=== PATIENT | male | born 1985 | race Two or more races ===

== ENCOUNTER 2016-06-20 13:26 | Emergency (ER) | payer SELFPAY ==
[~2016-06-20] VITALS: Ht 177.8 cm; Wt 81.6 kg
--- NOTE | 2016-06-20 13:32 | NUR ---
PT THREATENING STAFF, STATING "I HOPE YOU HIT HARDER THAN ME". PLACED ON 2 POINT RESTRAINTS FOR SAFETY.
--- NOTE | 2016-06-20 13:35 | NUR ---
PT BIB RA FOR ALTERED MENTAL STATUS S/P SUSPECTED DRUG AND ETOH USE. PT UNABLE TO MAKE NEEDS KNOWN. ALERT BUT DISORIENTED. REFUSING TO TELL US HIS NAME OR ANSWER QUESTIONS. THREATENING STAFF VERBALLY. ON 2 POINT RESTRAINTS FOR SAFETY. IN ER BED 15 ON MONITOR.
[2016-06-20] MEDS ORDERED: LORAZEPAM INJ 2 MG/ML VIAL ONE ×3 (13:40→18:50)
[2016-06-20] MEDS ORDERED: diphenhydrAMINE HCL 50 MG/ML VIAL ONE (13:40)
[2016-06-20] MEDS ORDERED: HALOPERIDOL LACTATE INJ 5 MG/ML VIAL ONE (13:40)
[2016-06-20 13:57] LABS: MEAN CORPUSCULAR VOLUME 90 fL (80-96); RDW COEFFICIENT OF VARIATION 12.1 (11.5-15.0)
[2016-06-20 13:59] LABS: BASOPHILS # (AUTO) 0.1 /CMM (0.0-0.2); BASOPHILS % (AUTO) 0.7 % (0.0-2.0); EOSINOPHILS # (AUTO) 0.2 /CMM (0.0-0.7); EOSINOPHILS % (AUTO) 1.2 % (0.0-6.0); HEMATOCRIT 42 % (39-51); HEMOGLOBIN 14.3 g/dL (13.5-17.5); LYMPHOCYTES # (AUTO) 4.9 /CMM (0.8-4.8); LYMPHOCYTES % (AUTO) 26.4 % (20.0-44.0); MEAN CORPUSCULAR HEMOGLOBIN 31 PG (26.0-33.0); MEAN CORPUSCULAR HGB CONC 34 g/dl (31.0-36.0); MONOCYTES # (AUTO) 0.5 /CMM (0.1-1.30); MONOCYTES % (AUTO) 2.8 % (2.0-12.0); NEUTROPHILS # (AUTO) 12.8 /CMM (1.8-8.9); NEUTROPHILS % (AUTO) 68.9 % (43.0-81.0); PLATELET COUNT (AUTO) 160 /CMM (150-450); RED BLOOD CELL COUNT(AUTO) 4.65 MIL/uL (4.5-6.0); WHITE BLOOD COUNT (AUTO) 18.5 K/uL (4.3-11.0)
[2016-06-20] MEDS ORDERED: HALOPERIDOL LACTATE INJ 5 MG/ML VIAL IM ONE (14:00)
[2016-06-20] MEDS ORDERED: LORAZEPAM INJ 2 MG/ML VIAL IV ONE ×3 (14:00→19:30)
[2016-06-20] MEDS ORDERED: diphenhydrAMINE HCL 50 MG/ML VIAL IM ONE (14:00)
[2016-06-20 14:03] LABS: CALCIUM, SERUM 8.9 mg/dL (8.5-10.1); CREATININE 0.9 mg/dL (0.6-1.3); POTASSIUM 4.3 mmol/L (3.5-5.1)
--- NOTE | 2016-06-20 14:15 | NUR ---
PT STILL VERY AGITATED, YELLING, MAKING NO SENSE. ON 4 POINT RESTRAINTS FOR SAFETY. MD NOTIFIED. ATIVAN ORDER RECEIVED AND ADMINISTERED.
[2016-06-20 14:16] LABS: ALBUMIN 4.6 g/dL (3.4-5.0); BILIRUBIN,TOTAL 0.3 mg/dL (0.2-1.0); SALICYLATE 3.1 mg/dL (2.8-20.0); TOTAL PROTEIN, SERUM 7.9 g/dL (6.4-8.2)
[2016-06-20] MEDS ORDERED: IV NS 0.9% 1,000 ML ONE ×2 (14:19→18:49)
[2016-06-20] MEDS ORDERED: IV SET PRIMARY 1 EA INFUS.SET MC ONE ×2 (14:19→18:49)
[2016-06-20] MEDS ORDERED: IV NS 0.9% 1,000 ML BAG IV ONE (14:30)
--- NOTE | 2016-06-20 14:31 | NUR ---
URINE SAMPLE OBTAINED BY MARTINEZ CATH
[2016-06-20 15:18] LABS: APPEARANCE,URINE Clear (CLEAR); BILIRUBIN,URINE Negative (NEGATIVE); BLOOD, URINE Negative Ery/uL (NEGATIVE); COLOR,URINE Yellow (YELLOW); KETONES,URINE Negative (NEGATIVE); LEUKOCYTE ESTERASE ,URINE Negative (NEGATIVE); NITRITE, URINE Negative (NEGATIVE); PROTEIN,URINE Negative (NEGATIVE); UGLUCOSE Negative (NEGATIVE); UROBILINOGEN,URINE 0.2 EU/dL (0.2)
[2016-06-20 15:29] LABS: PHENCYCLIDINE SCREEN,URINE NEGATIVE (NEGATIVE)
[2016-06-20 15:30] LABS: CANNABINOID, URINE POSITIVE (NEGATIVE)
--- NOTE | 2016-06-20 16:39 | NUR ---
RESTING QUIETLY, NAD NOTED. PLACED ON 2LPM VIA NC FOR O2 SUPPORT. PT SNORING.
--- NOTE | 2016-06-20 17:31 | NUR ---
PT WOKE UP, SCREAMING. UNABLE TO TELL HIS NAME OR RESPOND APPROPRIATELY. VSS. NOTIFIED.
[2016-06-20] MEDS ORDERED: WATER FOR INJECTION,STERILE 10 ML ONE (17:33)
[2016-06-20] MEDS ORDERED: OLANZAPINE 10 MG VIAL IM ONE ×2 (17:33→18:00)
--- NOTE | 2016-06-20 18:57 | NUR ---
PT WOKE UP AGAIN, SCREAMING. MD NOTIFIED. MEDICATION ADMINISTERED ORDERED.
[2016-06-20] MEDS ORDERED: IV NS 0.9% 1,000 ML IV ONE (19:00)
--- NOTE | 2016-06-20 20:55 | NUR ---
PT REMAINS SEDATED AT THIS TIME BUT AROUSABLE TO PAINFUL STIMULUS, NAD NOTED. VSS.
--- NOTE | 2016-06-20 21:17 | NUR ---
PT WOKE UP, AND THIS TIME IS ABLE TO TELL ME HIS NAME IS "YEISON". UNABLE TO PROVIDE MORE INFORMATION. WILL CONTINUE TO MONITOR.
--- NOTE | 2016-06-20 23:32 | NUR ---
PT ASLEEP BUT AROUSABLE AT THIS TIME. STILL UNABLE TO PROVIDE MORE INFORMATION THAN HIS NAME. REPORT GIVEN TO TANA BRAVO RN FOR [facility].
--- NOTE | 2016-06-21 04:35 | NUR ---
PT OK TO DISCHARGE PER DR GASTON. IV removed. Catheter intact and site benign. Pressure and 4x4 applied to site. No bleeding noted.Patient discharged to home in stable condition. Written and verbal after care instructions given. Patient verbalizes understanding of instruction.Patient is awake and alert to self, day, and place. PT denies SI/HI PT ambulatory with a steady gait.
[2016-06-21 05:06] VITALS: BP 115/85
== END 2016-06-21 05:07 | disposition home or self-care (01) ==
LOC: EDBD 13:29 → ER 13:29
DX: F15.10 Other stimulant abuse, uncomplicated (principal); Z59.0 Homelessness
CPT/HCPCS: 36415; 80048; 80076; 80305; 80329; 81001; 85025; 96361; 96372 ×3; 96374; 96376; 99284; A4606 ×2; G0480 ×2; J1200; J1630; J2060 ×3; J3490; J7030 ×2; Z7610 ×2; 81000-TC; G6039-TC

== ENCOUNTER 2021-06-22 15:50 | Emergency (ER) | payer SELFPAY ==
[~2021-06-22] VITALS: Ht 172.7 cm; Wt 86.2 kg
[2021-06-22 15:54] VITALS: BP 112/64
--- NOTE | 2021-06-22 15:56 | NUR ---
SEEN AND EXAMINED BY .
[2021-06-22] MEDS ORDERED: ACETAMINOPHEN ES 500 MG TABLET PO ONE (16:00)
[2021-06-22] MEDS ORDERED: TDAP [DIPH/PERTUSSIS/TET] 0.5 ML VIAL IM ONE ×2 (16:00→16:21)
[2021-06-22] MEDS ORDERED: LIDOCAINE HCL/PF 1% 30 ML VIAL TP ONE (16:00)
[2021-06-22] MEDS ORDERED: BACI/NEOM/POLY B OINT PKT 1 UDPKT PACKET TP ONE (16:00)
[2021-06-22] MEDS ORDERED: ACETAMINOPHEN ES 500 MG TABLET ONE (16:20)
--- NOTE | 2021-06-22 16:23 | NUR ---
PA AT BEDSIDE FOR SUTURING.
--- NOTE | 2021-06-22 17:34 | NUR ---
Patient discharged to home in stable condition. Written and verbal after care instructions given. Patient verbalizes understanding of instruction.
== END 2021-06-22 17:35 | disposition home or self-care (01) ==
LOC: ER 15:53
DX: S51.812A Laceration without foreign body of left forearm, initial encounter (principal); S51.811A Laceration without foreign body of right forearm, initial encounter; Z60.2 Problems related to living alone; X99.2XXA Assault by sword or dagger, initial encounter; Y93.89 Activity, other specified; Y92.89 Other specified places as the place of occurrence of the external cause; Y99.8 Other external cause status
CPT/HCPCS: 12002; 90471; 90715; 99283; A6403; J3490

== ENCOUNTER 2021-07-22 19:37 | Emergency (ER) | payer OTHER ==
[~2021-07-22] VITALS: Ht 175.3 cm; Wt 68.0 kg
--- NOTE | 2021-07-22 20:45 | NUR ---
BIBSELF C/O SUTUTE REMOVAL UPPER LEFT ARM AND POSS BUG BITE UPPER LEFT ARM. AMBULAORY, PLACED ON A CHAIR, [id number]
[2021-07-22] MEDS ORDERED: LIDOCAINE /MPF 1% VIAL 5 ML VIAL ONE (21:16)
[2021-07-22] MEDS ORDERED: CEFTRIAXONE 1 G VIAL ONE (21:16)
[2021-07-22] MEDS ORDERED: SULFAMETH/TRIMETH 800/160 MG 1 UDTAB TABLET ONE (21:17)
[2021-07-22] MEDS ORDERED: KETOROLAC TROMETHAMINE INJ 30 MG/ML VIAL ONE (21:18)
[2021-07-22] MEDS ORDERED: SULFAMETH/TRIMETH 800/160 MG 1 UDTAB TABLET PO ONE (21:30)
[2021-07-22] MEDS ORDERED: CEFTRIAXONE 1 G VIAL IM ONE (21:30)
[2021-07-22] MEDS ORDERED: KETOROLAC TROMETHAMINE INJ 60 MG/2 ML VIAL IM ONE (21:30)
[2021-07-22] MEDS ORDERED: CEPH500C2 PO (21:51)
[2021-07-22] MEDS ORDERED: SULF1TAB48 PO (21:51)
[2021-07-22] MEDS ORDERED: IBUP-1955 PO (21:52)
--- NOTE | 2021-07-22 22:11 | NUR ---
Patient discharged to home in stable condition. Written and verbal after care instructions given. Patient verbalizes understanding of instruction.
[2021-07-22 22:26] VITALS: BP 135/75
== END 2021-07-22 22:25 | disposition home or self-care (01) ==
LOC: ER 19:39
DX: L03.114 Cellulitis of left upper limb (principal); Z48.02 Encounter for removal of sutures; F15.10 Other stimulant abuse, uncomplicated; Z59.00 Homelessness unspecified
CPT/HCPCS: 96372 ×2; 99284; J0696; J1885; J3490